=== PATIENT | male | born 1985 | race Caucasian/White ===

== ENCOUNTER 2017-03-01 18:04 | Emergency (ER) | payer SELFPAY ==
[2017-03-01 18:09] VITALS: BP 137/86
--- NOTE | 2017-03-01 18:24 | ER Document Report ---
ED Medical Screen (RME) - General Chief Complaint: Foreign Body in Eye Stated Complaint: FOREIGN OBJECT IN LEFT EYE Time Seen by Provider: 03/01/17 18:14 Mode of Arrival: Ambulatory Information source: Patient TRAVEL OUTSIDE OF THE [place] IN LAST 30 DAYS: No - HPI Patient complains to provider of: Foreign body in left eye Notes: 03/01/17 18:23 Patient is a 31-year-old male presenting to the emergency room complaining of foreign body sensation in the left eye, states yesterday he was working on his mother's car when a piece of metal came off of the rotor and entered his eye, he thought he got the piece out but has had a foreign body sensation in the eye throughout the day today - Related Data Allergies/Adverse Reactions: No Known Allergies Allergy (Verified 03/01/17 18:09) Past Medical History - Social History Chew tobacco use (# tins/day): No Frequency of alcohol use: None Drug Abuse: None Renal/ Medical History: Denies: Hx Peritoneal Dialysis Surgical Hx: Negative - Immunizations Hx Diphtheria, Pertussis, Tetanus Vaccination: Yes History of Influenza Vaccine for 03/2017 - 07/2017 Season: Yes Physical Exam - Vital signs Vitals: Temp Pulse Resp BP Pulse Ox 98.7 F 85 20 137/86 H 100 03/01/17 18:06 03/01/17 18:06 03/01/17 18:06 03/01/17 18:06 03/01/17 18:06 Course - Vital Signs Vital signs: Temp Pulse Resp BP Pulse Ox 98.7 F 85 20 137/86 H 100 03/01/17 18:06 03/01/17 18:06 03/01/17 18:06 03/01/17 18:06 03/01/17 18:06
== END 2017-03-01 19:30 | disposition left against medical advice (07) ==
LOC: ER 18:04
DX: Z53.9 Procedure and treatment not carried out, unspecified reason (principal); T15.92XA Foreign body on external eye, part unspecified, left eye, initial encounter; X58.XXXA Exposure to other specified factors, initial encounter
CPT/HCPCS: 99281